=== PATIENT | male | born 1985 | race Hispanic/Latino ===

== ENCOUNTER 2020-12-20 23:01 | Emergency (ER) | payer SELFPAY ==
--- NOTE | 2020-12-20 23:51 | ER ---
Nurse's Notes [facility] Name: Polo Noe Age: 35 yrs Sex: Male : 1985 Arrival Date: 12/20/2020 Time: 23:07 Bed Waiting Private MD: Diagnosis: Presentation: 12/20 23:26 Chief complaint: Patient states: he has been having right ear pain x 4 days the pain is bb intermittent and radiates to his throat. Coronavirus screen: At this time, the client does not indicate any symptoms associated with coronavirus-19. Ebola Screen: No symptoms or risks identified at this time. Initial Sepsis Screen: Does the patient meet any 2 criteria? No. Patient's initial sepsis screen is negative. Does the patient have a suspected source of infection? No. Patient's initial sepsis screen is negative. Risk Assessment: Do you want to hurt yourself or someone else? Patient reports no desire to harm self or others. Onset of symptoms was December 16, 2020. 23:26 Method Of Arrival: Ambulatory bb 23:26 Acuity: CHARAN 5 bb Triage Assessment: 23:28 General: Appears in no apparent distress. slender, Behavior is calm, cooperative. Pain: bb Complains of pain in right ear Pain currently is 8 out of 10 on a pain scale. EENT: Reports pain in right ear. Neuro: Level of Consciousness is awake, alert, obeys commands, Oriented to person, place, time, situation. Cardiovascular: No deficits noted. Respiratory: Respiratory effort is even, unlabored, Respiratory pattern is regular. GI: No signs and/or symptoms were reported involving the gastrointestinal system. Derm: Skin is pink, warm \T\ dry. Musculoskeletal: Circulation, motion, and sensation intact. Historical: - Allergies: 23:28 No Known Allergies; bb - Home Meds: 23:28 None [Active]; bb - PMHx: 23:28 None; bb - PSHx: 23:28 Knee surgery; bb - Immunization history:: Adult Immunizations up to date. - Social history:: Smoking status: Patient/guardian denies using tobacco, Stopped _ months ago 1. Screenin:30 Abuse screen: Denies threats or abuse. Nutritional screening: No deficits noted. bb Tuberculosis screening: No symptoms or risk factors identified. Fall Risk None identified. Assessment: 23:29 Reassessment: No changes from previously documented assessment. see triage note. Dr amira Del Cid in triage for pt evaluation. 23:50 Reassessment: pt decided to leave as they were unable to pay the copay for a bb non-emergent complaint. Vital Signs: 23:26 BP 125 / 52; Pulse 60; Resp 16 S; Temp 98.2(O); Pulse Ox 99% on R/A; Weight 63.5 kg bb (R); Height 5 ft. 5 in. (165.10 cm) (R); Pain 8/10; 23:26 Body Mass Index 23.30 (63.50 kg, 165.10 cm) bb ED Course: 23:07 Patient arrived in ED. cf2 23:25 Kevyn Del Cid MD is Attending Physician. tw4 23:28 Triage completed. bb 23:28 Arm band placed on Patient placed in waiting room, Patient notified of wait time. bb 23:30 Patient has correct armband on for positive identification. Adult w/ patient. bb 23:30 No provider procedures requiring assistance completed. Patient did not have IV access bb during this emergency room visit. Administered Medications: No medications were administered Outcome: 23:51 Patient left the ED. bb Signatures: Marichuy Vogel RN RN Kevyn Perdomo MD MD tw4 Jeanmarie Allison cf2
--- NOTE | 2020-12-20 23:51 | EDPHYS ---
Physician Documentation [facility] Name: Polo Noe Age: 35 yrs Sex: Male : 1985 Arrival Date: 12/20/2020 Time: 23:07 Bed Waiting Private MD: ED Physician Kevyn Del Cid HPI: 12/20 23:25 This 35 yrs old Male presents to ER via Unassigned with complaints of Ear tw4 Pain, THROAT PAIN. 23:25 The patient presents with pain. The complaints affect the right ear. Onset: The tw4 symptoms/episode began/occurred 4 day(s) ago. Modifying factors: The symptoms are alleviated by nothing, the symptoms are aggravated by nothing. Associated signs and symptoms: The patient has no apparent associated signs or symptoms. Severity of symptoms: At their worst the symptoms were mild in the emergency department the symptoms are unchanged. Unable to obtain HPI due to. The patient has not experienced similar symptoms in the past. Historical: - Allergies: 23:28 No Known Allergies; bb - Home Meds: 23:28 None [Active]; bb - PMHx: 23:28 None; bb - PSHx: 23:28 Knee surgery; bb - Immunization history:: Adult Immunizations up to date. - Social history:: Smoking status: Patient/guardian denies using tobacco, Stopped _ months ago 1. ROS: 23:25 Constitutional: Negative for fever, chills, and weight loss, Eyes: Negative for injury, tw4 pain, redness, and discharge, Cardiovascular: Negative for chest pain, palpitations, and edema, Respiratory: Negative for shortness of breath, cough, wheezing, and pleuritic chest pain, Abdomen/GI: Negative for abdominal pain, nausea, vomiting, diarrhea, and constipation, Back: Negative for injury and pain, MS/Extremity: Negative for injury and deformity, Skin: Negative for injury, rash, and discoloration, Neuro: Negative for headache, weakness, numbness, tingling, and seizure. 23:25 ENT: Positive for ear pain, sore throat, Negative for drainage from ear(s), foreign body sensation, Gum pain hearing loss, pulling at ears, Teeth pain nasal discharge, rhinorrhea. Exam: 23:25 Constitutional: This is a well developed, well nourished patient who is awake, alert, tw4 and in no acute distress. Head/Face: Normocephalic, atraumatic. 23:25 Chest/axilla: Normal chest wall appearance and motion. Nontender with no deformity. No lesions are appreciated. Cardiovascular: Regular rate and rhythm with a normal S1 and S2. No gallops, murmurs, or rubs. Normal PMI, no JVD. No pulse deficits. Respiratory: Lungs have equal breath sounds bilaterally, clear to auscultation and percussion. No rales, rhonchi or wheezes noted. No increased work of breathing, no retractions or nasal flaring. Abdomen/GI: Soft, non-tender, with normal bowel sounds. No distension or tympany. No guarding or rebound. No evidence of tenderness throughout. Back: No spinal tenderness. No costovertebral tenderness. Full range of motion. MS/ Extremity: Pulses equal, no cyanosis. Neurovascular intact. Full, normal range of motion. Neuro: Awake and alert, GCS 15, oriented to person, place, time, and situation. Cranial nerves II-XII grossly intact. Motor strength 5/5 in all extremities. Sensory grossly intact. Cerebellar exam normal. Normal gait. 23:25 ENT: External ear(s): are unremarkable, Ear canal(s): are normal, TM's: dullness. Vital Signs: 23:26 BP 125 / 52; Pulse 60; Resp 16 S; Temp 98.2(O); Pulse Ox 99% on R/A; Weight 63.5 kg bb (R); Height 5 ft. 5 in. (165.10 cm) (R); Pain 8/10; 23:26 Body Mass Index 23.30 (63.50 kg, 165.10 cm) bb MDM: 23:27 Counseling: I had a detailed discussion with the patient and/or guardian regarding: the tw4 historical points, exam findings, and any diagnostic results supporting the discharge/admit diagnosis. Medical screen evaluation completed. EMTALA emergency medical condition absent. Administered Medications: No medications were administered Disposition: 12/20/20 23:51 Patient left the facility after being seen by provider. - Patient left due to (see nurse's notes). Signatures: Marichuy Vogel RN RN bb Kevyn Del Cid MD MD tw4
[2020-12-21 03:52] VITALS: BP 125/52; TEMP 98.2; O2SAT 99
== END 2020-12-20 23:51 | disposition left against medical advice (07) ==
LOC: ER 23:01
DX: H92.01 Otalgia, right ear (principal); Z53.20 Procedure and treatment not carried out because of patient's decision for unspecified reasons; Z87.891 Personal history of nicotine dependence; R07.0 Pain in throat
CPT/HCPCS: 99281

== ENCOUNTER 2021-01-06 16:25 | Emergency (ER) | payer OTHER, SELFPAY ==
--- NOTE | 2021-01-06 17:53 | RAD REPORT ---
EXAM DESCRIPTION: RAD - Chest Pa And Lat (2 Views) - 01/06/2021 5:38 pm CLINICAL HISTORY: Chest pain;SOB COMPARISON: None TECHNIQUE: Frontal and lateral views of the chest were obtained. FINDINGS: The lungs are clear. Heart size is normal and central vasculature is within normal limit s. No pleural effusion or pneumothorax seen. No acute bony finding noted. No aortic abnormality. IMPRESSION: No acute cardiopulmonary process.
--- NOTE | 2021-01-06 19:08 | ER ---
Nurse's Notes [facility] Name: Polo Noe Age: 35 yrs Sex: Male : 1985 Arrival Date: 01/06/2021 Time: 16:28 Bed 13 Private MD: Diagnosis: Shortness of breath Presentation: 01/06 16:45 Chief complaint: Patient states: SOB off/on for 2-3 months. Chest tightness when SOB ll1 starts. No cough or fever. Coronavirus screen: Client denies travel out of the [place] in the last 14 days. difficulty breathing, shortness of breath, Client presents with at least one sign or symptom that may indicate coronavirus-19. Standard/surgical mask placed on the client. Ebola Screen: Patient denies travel to an Ebola-affected area in the 21 days before illness onset. Initial Sepsis Screen: Does the patient meet any 2 criteria? No. Patient's initial sepsis screen is negative. Does the patient have a suspected source of infection? Yes: Other: SOB. Risk Assessment: Do you want to hurt yourself or someone else? Patient reports no desire to harm self or others. Onset of symptoms was October 09, 2020. 16:45 Method Of Arrival: Ambulatory ll1 16:45 Acuity: CHARAN 3 ll1 Historical: - Allergies: 16:47 No Known Allergies; ll1 - PMHx: 16:47 None; ll1 - PSHx: 16:47 Knee surgery; ll1 - Immunization history:: Client reports having NOT received the Covid vaccine. Flu vaccine is not up to date. - Social history:: Smoking status: Patient/guardian denies using tobacco, Stopped _ months ago 1. Screenin:00 Abuse screen: Denies threats or abuse. Denies injuries from another. Nutritional kg screening: No deficits noted. Tuberculosis screening: No symptoms or risk factors identified. Fall Risk None identified. No fall in past 12 months (0 pts). No secondary diagnosis (0 pts). No IV (0 pts). Ambulatory Aid- None/Bed Rest/Nurse Assist (0 pts). Gait- Normal/Bed Rest/Wheelchair (0 pts) Mental Status- Oriented to own ability (0 pts). Total Yen Fall Scale indicates No Risk (0-24 pts). Assessment: 16:45 General: Appears in no apparent distress. Behavior is cooperative, appropriate for age, kg anxious, quiet. Pain: Denies pain. Neuro: No deficits noted. Cardiovascular: No deficits noted. Reports shortness of breath, chest tightness in the left epigastric area that come and goes, currently no pain Heart tones S1 S2 Rhythm is regular. Respiratory: Reports shortness of breath at rest SOB that comes and goes. Pt reports, "it comes when I'm in my truck with my windows up but when I'm in my car that has no a/c so I have to ride with the windows down I don't have and shortness of breath." Airway is patent Respiratory effort is even, unlabored, relaxed, Breath sounds are clear bilaterally. GI: No deficits noted. : No deficits noted. EENT: No deficits noted. Derm: No deficits noted. Musculoskeletal: No deficits noted. 19:19 Reassessment: Patient appears in no apparent distress at this time. Patient is alert, rr5 oriented x 3, equal unlabored respirations, skin warm/dry/pink. discharge instruction given and explained without complaints made. Vital Signs: 16:45 BP 133 / 86; Pulse 79; Resp 17; Temp 98.9; Pulse Ox 100% on R/A; Weight 63.5 kg; Height ll1 5 ft. 5 in. (165.10 cm); Pain 0/10; 17:45 BP 125 / 75; Pulse 64; Resp 20 S; Pulse Ox 100% on R/A; kg 18:24 BP 127 / 84; Pulse 67; Resp 18; Pulse Ox 99% ; kg 19:20 BP 121 / 70; Pulse 65; Resp 16; Pulse Ox 98% ; rr5 16:45 Body Mass Index 23.30 (63.50 kg, 165.10 cm) ll1 ED Course: 16:28 Patient arrived in ED. mr 16:38 Arm band placed on Patient placed in an exam room, on a stretcher. ll1 16:40 Brian Schofield PA is PHCP. cp 16:40 Rod Hill MD is Attending Physician. cp 16:47 Triage completed. ll1 17:30 XRAY Chest Pa And Lat (2 Views) In Process Unspecified. EDMS 17:55 Cynthia Huizar is Primary Nurse. kg 19:20 Patient has correct armband on for positive identification. Bed in low position. rr5 19:20 No provider procedures requiring assistance completed. Patient did not have IV access rr5 during this emergency room visit. Administered Medications: No medications were administered Outcome: 19:07 Discharge ordered by . cp 19:20 Discharged to home ambulatory. rr5 19:20 Condition: stable 19:20 Discharge instructions given to patient, Instructed on discharge instructions, follow up and referral plans. medication usage, Demonstrated understanding of instructions, follow-up care, medications, Prescriptions given X 1. 19:21 Patient left the ED. rr5 Signatures: Dispatcher [employer]SD FaithLay Corey, PA PA cp Roque, Raymond RN RN rr5 Arely Andrade RN RN ll1 Cynthia Huizar kg
--- NOTE | 2021-01-06 19:08 | EDPHYS ---
Physician Documentation [facility] Name: Polo Noe Age: 35 yrs Sex: Male : 1985 Arrival Date: 01/06/2021 Time: 16:28 Bed 13 Private MD: ED Physician Rod Hill HPI: 01/06 17:05 This 35 yrs old Male presents to ER via Ambulatory with complaints of cp Breathing Difficulty. 17:05 The patient has shortness of breath at rest, intermittent. Onset: The symptoms/episode cp began/occurred 3 month(s) ago. 17:05 Duration: The symptoms are intermittent, with no pattern. Associated signs and cp symptoms: Pertinent positives: chest pain, Pertinent negatives: fever, cough. Severity of symptoms: in the emergency department the symptoms have resolved. Patient reports shortness of breath starts in throat and then moves to chest. Intermittent episode with no pattern. Episodes occur while driving car. Recent move to [place] from [place] 3 months ago. 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 Recently quit smoking but continues to smoke. Denies history of anxiety. Historical: - Allergies: 16:47 No Known Allergies; ll1 - PMHx: 16:47 None; ll1 - PSHx: 16:47 Knee surgery; ll1 - Immunization history:: Client reports having NOT received the Covid vaccine. Flu vaccine is not up to date. - Social history:: Smoking status: Patient/guardian denies using tobacco, Stopped _ months ago 1. ROS: 17:10 Constitutional: Negative for body aches, chills, fever, poor PO intake. cp 17:10 Cardiovascular: Negative for chest pain, palpitations. cp 17:10 Respiratory: Positive for shortness of breath, Negative for cough, wheezing. 17:10 Eyes: Negative for injury, pain, redness, and discharge. cp 17:10 ENT: Negative for ear pain, sore throat, difficulty swallowing, difficulty handling secretions. 17:10 Abdomen/GI: Negative for abdominal pain, nausea, vomiting, and diarrhea. 17:10 Back: Negative for radiated pain. 17:10 Neuro: Negative for altered mental status, headache, weakness. 17:10 All other systems are negative. Exam: 17:15 Constitutional: The patient appears in no acute distress, alert, awake, cp non-diaphoretic, non-toxic, well developed, well nourished. 17:15 Head/Face: Normocephalic, atraumatic. cp 17:15 Eyes: Periorbital structures: appear normal, Conjunctiva: normal, no exudate, no injection, Sclera: no appreciated abnormality, Lids and lashes: appear normal, bilaterally. 17:15 ENT: External ear(s): are unremarkable, Nose: is normal, Mouth: Lips: moist, Oral mucosa: moist, Posterior pharynx: Airway: no evidence of obstruction, patent. 17:15 Chest/axilla: Inspection: normal, Palpation: is normal, no crepitus, no tenderness. 17:15 Cardiovascular: Rate: normal, Rhythm: regular, Pulses: Pulses are 2+ in right radial artery and left radial artery. Edema: is not appreciated, JVD: is not appreciated. 17:15 Respiratory: the patient does not display signs of respiratory distress, Respirations: normal, no use of accessory muscles, no retractions, labored breathing, is not present, Breath sounds: are clear throughout, no decreased breath sounds, no stridor, no wheezing. 17:15 Abdomen/GI: Inspection: abdomen appears normal, Palpation: abdomen is soft and non-tender, in all quadrants. 17:15 Back: pain, is absent, ROM is normal. 17:18 ECG was reviewed by the Attending Physician. cp Vital Signs: 16:45 BP 133 / 86; Pulse 79; Resp 17; Temp 98.9; Pulse Ox 100% on R/A; Weight 63.5 kg; Height ll1 5 ft. 5 in. (165.10 cm); Pain 0/10; 17:45 BP 125 / 75; Pulse 64; Resp 20 S; Pulse Ox 100% on R/A; kg 18:24 BP 127 / 84; Pulse 67; Resp 18; Pulse Ox 99% ; kg 19:20 BP 121 / 70; Pulse 65; Resp 16; Pulse Ox 98% ; rr5 16:45 Body Mass Index 23.30 (63.50 kg, 165.10 cm) ll1 MDM: 16:47 Patient medically screened. cp 17:00 Differential diagnosis: Anxiety Reaction asthma, Bronchitis Pneumothorax reactive cp airway disease. 19:05 Data reviewed: vital signs, nurses notes, EKG, radiologic studies, plain films. cp 19:05 Test interpretation: by ED physician or midlevel provider: ECG, plain radiologic cp studies. Counseling: I had a detailed discussion with the patient and/or guardian regarding: the historical points, exam findings, and any diagnostic results supporting the discharge/admit diagnosis, radiology results, the need for outpatient follow up, a family practitioner, to return to the emergency department if symptoms worsen or persist or if there are any questions or concerns that arise at home. 01/06 17:00 Order name: XRAY Chest Pa And Lat (2 Views); Complete Time: 17:57 cp 01/06 17:00 Order name: EKG; Complete Time: 17:01 cp 01/06 17:00 Order name: EKG - Nurse/Tech; Complete Time: 19:09 cp EC:18 Rate is 56 beats/min. Rhythm is regular. CO interval is normal. QRS interval is normal. cp QT interval is normal. T waves are Inverted in lead aVL. Interpreted by me. Reviewed by me. Administered Medications: No medications were administered Disposition: 01/06/21 19:07 Discharged to Home. Impression: Shortness of breath. - Condition is Stable. - Discharge Instructions: Shortness of Breath. - Prescriptions for Albuterol Sulfate 90 mcg/actuation - inhale 1-2 puff by INHALATION route every 4-6 hours; 1 Inhaler. - Medication Reconciliation Form, Thank You Letter, Antibiotic Education, Prescription Opioid Use, Work release form form. - Follow up: Private Physician; When: 1 week; Reason: Recheck today's complaints. - Problem is an ongoing problem. - Symptoms are unchanged. Addendum: 01/12/2021 07:57 Co-signature as Attending Physician, Rod Hill MD. r n Signatures: Dispatcher [employer] [facility] Rod Hill MD MD rn Page, Corey, PA PA cp Dejon Gan RN RN rr5 Arely Andrade, JOSE FRANCISCO RN ll1 Corrections: (The following items were deleted from the chart) 01/06 19:04 17:07 CORONAVIRUS+MR.LAB.BRZ ordered. [facility] 19:21 19:07 01/06/2021 19:07 Discharged to Home. Impression: Shortness of breath. Condition rr5 is Stable. Prescriptions for Albuterol Sulfate 90 mcg/actuation - inhale 1-2 puff by INHALATION route every 4-6 hours; 1 Inhaler. and Forms are Medication Reconciliation Form, Thank You Letter, Antibiotic Education, Prescription Opioid Use. Follow up: Private Physician; When: 1 week; Reason: Recheck today's complaints. Problem is an ongoing problem. Symptoms are unchanged. cp
[2021-01-06 19:35] VITALS: TEMP 98.9
[2021-01-06 19:39] VITALS: BP 121/70; O2SAT 98
--- NOTE | 2021-01-07 11:59 | EKG ---
Test Date: 2021-01-06 Test Time: 17:12:01 Soft Sugar Operator Head: FROILAN MEASUREMENT RESULTS: Intervals: Rate: 56 IL: 142 QRSD: 94 QT: 388 QTc: 374 [place]: P: 39 IL: 142 QRS: 79 T: 69 INTERPRETIVE STATEMENTS: Sinus bradycardia with sinus arrhythmia Moderate voltage criteria for LVH, may be normal variant Borderline ECG Electronically Signed On 01-07-21 11:56:59 CDT by Sukhi Stoddard
== END 2021-01-06 19:21 | disposition home or self-care (01) ==
LOC: ER 16:25
DX: R06.02 Shortness of breath (principal); R07.9 Chest pain, unspecified; Z20.822 Contact with and (suspected) exposure to COVID-19
CPT/HCPCS: 93005; 71046; 99283; U0003